=== PATIENT | male | born 1965 | race Caucasian/White ===

== ENCOUNTER 2018-02-08 17:05 | Emergency (ER) | payer OTHER ==
[2018-02-08 17:52] VITALS: BP 122/67; PULSE 81; TEMP 98.3; BMI 27.9
[2018-02-08 18:01] LABS: BASO % 1.1 % (0-2.0); EOS % 2.5 % (0-4.5); HEMATOCRIT 30.8 % (35.4-49); HEMOGLOBIN 10.3 GM/dL (11.7-16.9); LYMPH % 15.5 % (8-40); MCH 30.5 pg (25.7-33.7); MCHC 33.3 g/dl (32.0-35.9); MEAN CELL VOLUME 91.5 fl (80-96); MEAN PLT VOLUME 9.4 fl (7.5-11.1); MONO % 13.5 % (3.8-10.2); NEUT % 67.4 % (42.8-82.8); PLATELET COUNT 197 K/MM3 (134-434); RBC 3.37 M/mm3 (4.00-5.60); RDW 19.7 % (11.9-15.9); WHITE BLOOD COUNT 9.5 K/mm3 (4.0-10.0)
[2018-02-08 18:19] LABS: INR 1.32 (0.82-1.09); PROTHROMBIN TIME (PATIENT) 14.9 SEC (9.7-13.0)
[2018-02-08 18:25] LABS: ALBUMIN 2.9 g/dl (3.4-5.0); ANION GAP 8 (8-16); BILIRUBIN,TOTAL 0.6 mg/dL (0.2-1.0); BLOOD UREA NITROGEN 14 mg/dL (7-18); CALCIUM 8.3 mg/dL (8.5-10.1); CHLORIDE 107 mmol/L (98-107); CO2 27 mmol/L (21-32); CREATININE 0.7 mg/dL (0.7-1.3); GLUCOSE,RANDOM 90 mg/dL (74-106); POTASSIUM 4.2 mmol/L (3.5-5.1); SGOT/AST 67 U/L (15-37); SGPT/ALT 46 U/L (12-78); SODIUM 142 mmol/L (136-145); TOT PROT 7.3 g/dl (6.4-8.2)
[2018-02-08 18:26] LABS: ALK PHOS 264 U/L (45-117)
--- NOTE | 2018-02-08 18:45 | PDOC ---
History of Present Illness - General History Source: Patient Exam Limitations: No Limitations <Shannan Abreu - Last Filed: 02/08/18 19:06> - History of Present Illness Initial Comments: 02/08/18 19:22 "The patient is a 52-year-old female with past medical history of HTN, TBI, COPD , Recent hx of perforated gastric ulcer, alcoholic Cirrhosis w/ ascites, ETOH abuse (since age 13), anxiety, depression, recent dx of pneumonia (December 2017) and hypothyroidism presents to the emergency department via EMS, from [facility] for antibiotic administration. Postoperative emergent laparotomy, patient became hypoxic and was intubated on 01/06/2018. Patient was transferred to [facility] due to persistent drainage from the LOREN drain and for further evaluation by the Liver transplant team. Patient was started on ciprofloxacin and fluconazole, later discharge to rehab. In rehab, patient noticed an increase in yellowing discoloration of the abdomen wound incision site. Patient was seen at the ED on 02/04 for evaluation due to an increase in wound discoloration. Patient was evaluated by surgery, whose plan was to have the wound heal by secondary intention. Patient had a wound culture performed during the ED visit, culture results came back positive for MRSA. Patient was started on Cipro since the hospitalization, and the culture results on the showed it was resistant for Cipro. Patient was sent to ED for possible IV antibiotic administration. Patient reports he changes his own wound dressing without assistance and the discharge has been improving Denies fever, chills, cough or a headache. Denies chest pain or shortness of breath. Denies back pain. Denies any changes in appetite. Denies any urinary issues. Denies diarrhea. Denies recent drainage from the wound or increase in drainage. Allergies: naproxen Social history: Former smoker. Started drinking alcohol at age 13, consumes 10- 12x 24oz of beer daily. Last drank on 12/21/17). Denies the use of recreational drugs. Surgical history: Hernia Repair (umbilical), R. hip and leg and ankle surgery, laparotomy with Yeyo patch repair of perforated ulcer performed by Dr. Ciera Cho at [place] and paracentesis. PCP: None reported. " <Dimas Dailey - Last Filed: 02/08/18 19:22> <Rema Beck - Last Filed: 02/08/18 21:11> - General Chief Complaint: Wound Stated Complaint: WOUND Time Seen by Provider: 02/08/18 17:43 Past History <Shannan Abreu - Last Filed: 02/08/18 19:06> - Past Medical History Anemia: No Asthma: No Cancer: No Cardiac Disorders: No CVA: No COPD: Yes CHF: No Dementia: No Diabetes: No GI Disorders: Yes (Peptic Ulcer) Disorders: No HTN: No Hypercholesterolemia: No Kidney Stones: No Liver Disease: Yes (cirrhosis of liver) Psychiatric Problems: Yes (depression) Seizures: No Thyroid Disease: Yes (hypothyroidism) - Surgical History Abdominal Surgery: Yes (emergency laparotomy with yeyo patch repair 01/06/18) Appendectomy: No Cardiac Surgery: No Cholecystectomy: No Lung Surgery: No Neurologic Surgery: No Orthopedic Surgery: No - Reproductive History Testicular Surgery: No - Suicide/Smoking/Psychosocial Hx Smoking History: Former smoker Have you smoked in the past 12 months: Yes Number of Cigarettes Smoked Daily: 10 If you are a former smoker, when did you quit?: 12/04/2017 Information on smoking cessation initiated: No 'Breaking Loose' booklet given: 02/04/18 Hx Alcohol Use: Yes Drug/Substance Use Hx: No Substance Use Type: Alcohol Hx Substance Use Treatment: Yes (3 previous inpt detox & 4-5 inpt rehab) <Dimas Dailey - Last Filed: 02/08/18 19:22> <Rema Beck - Last Filed: 02/08/18 21:11> - Past Medical History Allergies/Adverse Reactions: Allergies Allergy/AdvReac Type Severity Reaction Status Date / Time naproxen Allergy Severe Difficulty Verified 02/08/18 17:35 Breathing Home Medications: Ambulatory Orders Budesonide/Formeterol Fumarate [SYMBICORT 160/4.5mcg -] 1 inh PO BID 01/25/18 Ciprofloxacin [Cipro (Restricted To Id)] 500 mg PO Q12H 01/25/18 Fluconazole 400 mg PO DAILY 01/25/18 Folic Acid - 1 mg PO DAILY 01/25/18 Furosemide [Lasix -] 20 mg PO DAILY 01/25/18 Lactulose (Oral Use) [Cephulac -] 20 gm PO TID 01/25/18 Levothyroxine [Synthroid -] 150 mcg PO DAILY 01/25/18 Midodrine HCl [Proamatine -] 5 mg PO TID 01/25/18 Sertraline HCl [Zoloft] 100 mg PO DAILY 01/25/18 Spironolactone 50 mg PO DAILY 01/25/18 Review of Systems - Review of Systems Able to Perform ROS?: Yes Comments:: 02/08/18 19:22 CONSTITUTIONAL: No reported: Fever, Chills, Diaphoresis, Generalized Weakness, Malaise, Loss of Appetite HEENT: No reported: Rhinorrhea, Nasal Congestion, Throat Pain, Throat Swelling, Difficulty Swallowing, Mouth Swelling, Ear Pain, Eye Pain, Visual Changes CARDIOVASCULAR: No reported: Chest Pain, Syncope, Palpitations, Irregular Heart Rate, Lightheadedness, Peripheral Edema RESPIRATORY: No reported: Cough, Shortness of Breath, SOB with Exertion, Orthopnea, Wheezing , Stridor, Hemoptysis GASTROINTESTINAL: No drainage from the incision site (+) chronic abdominal distension. No reported: Abdominal pain, Nausea, Vomiting, Diarrhea, Constipation, Melena, Hematochezia GENITOURINARY: No reported: Dysuria, Frequency, Urgency, Hesitancy, Flank Pain, Genital Pain MUSCULOSKELETAL: No reported: Myalgia, Arthralgia, Joint Swelling, Back pain, Neck Pain SKIN: No reported: Rash, Itching, Pallor HEMEATOLOGIC/IMMUNOLOGIC: No reported: Easy Bleeding, Easy Bruising, Lymphadenopathy, Frequent infections ENDOCRINE: No reported: Unexplained Weight Gain, Unexplained Weight Loss, Heat Intolerance , Cold Intolerance NEUROLOGIC: No reported: Headache, Focal Weakness, Paresthesias, Vertigo, Lightheadedness, Unsteady Gait, Seizure, Mental Status Changes, Incontinence PSYCHIATRIC: No reported: Anxiety, Depression <Dimas Dailey - Last Filed: 02/08/18 19:22> *Physical Exam - Vital Signs Last Vital Signs Temp Pulse Resp BP Pulse Ox 98.3 F 81 18 122/67 97 02/08/18 17:05 02/08/18 17:05 02/08/18 17:05 02/08/18 17:05 02/08/18 17:05 <Shannan Abreu - Last Filed: 02/08/18 19:06> - Vital Signs Last Vital Signs Temp Pulse Resp BP Pulse Ox 98.3 F 81 18 122/67 97 02/08/18 17:05 02/08/18 17:05 02/08/18 17:05 02/08/18 17:05 02/08/18 17:05 - Physical Exam Comments: 02/08/18 18:48 GENERAL: The patient is awake, alert, and fully oriented, Nontoxic - in no acute distress. HEAD: Normocephalic, atraumatic. EYES: extraocular movements intact, sclera anicteric, conjunctiva clear. ENT: Normal voice, Moist mucous membranes. NECK: Normal range of motion, supple LUNGS: Breath sounds equal, clear to auscultation bilaterally. No wheezes, no rhonchi, no rales. HEART: Regular rate and rhythm, normal S1 and S2 without murmur, rub or gallop. ABDOMEN: soft, slightly distended, mid abdomen scar with area of dehiscence in the proximal region, staplse in place, mild erythema surrounding wound without induration, warmth, no discharge upon palpation, EXTREMITIES: Normal range of motion, +1 pitting edema b/l in lower extreme NEUROLOGICAL: No facial assymetry, Normal speech, moving all 4 extremities sponatneously and symmetrically PSYCH: Normal mood, normal affect. SKIN: Warm, Dry, normal turgor, <Ashlie,Dimas - Last Filed: 02/08/18 19:22> - Vital Signs Last Vital Signs Temp Pulse Resp BP Pulse Ox 98.3 F 81 18 122/67 97 02/08/18 17:05 02/08/18 17:05 02/08/18 17:05 02/08/18 17:05 02/08/18 17:05 <Rema Beck - Last Filed: 02/08/18 21:11> ED Treatment Course - LABORATORY CBC & Chemistry Diagram: 02/08/18 17:54 02/08/18 17:54 - ADDITIONAL ORDERS Additional order review: Laboratory Results 02/08/18 02/08/18 17:54 17:54 PT with INR 14.90 H INR 1.32 H Sodium 142 Potassium 4.2 Chloride 107 Carbon Dioxide 27 Anion Gap 8 BUN 14 Creatinine 0.7 Creat Clearance w eGFR > 60 Random Glucose 90 Calcium 8.3 L Total Bilirubin 0.6 AST 67 H ALT 46 Alkaline Phosphatase 264 H D Total Protein 7.3 Albumin 2.9 L 02/08/18 17:54 RBC 3.37 L MCV 91.5 MCHC 33.3 RDW 19.7 H MPV 9.4 Neutrophils % 67.4 Lymphocytes % 15.5 Monocytes % 13.5 H Eosinophils % 2.5 Basophils % 1.1 <Shannan Abreu - Last Filed: 02/08/18 19:06> - LABORATORY CBC & Chemistry Diagram: 02/08/18 17:54 02/08/18 17:54 - ADDITIONAL ORDERS Additional order review: Laboratory Results 02/08/18 02/08/18 17:54 17:54 PT with INR 14.90 H INR 1.32 H Sodium 142 Potassium 4.2 Chloride 107 Carbon Dioxide 27 Anion Gap 8 BUN 14 Creatinine 0.7 Creat Clearance w eGFR > 60 Random Glucose 90 Calcium 8.3 L Total Bilirubin 0.6 AST 67 H ALT 46 Alkaline Phosphatase 264 H D Total Protein 7.3 Albumin 2.9 L 02/08/18 17:54 RBC 3.37 L MCV 91.5 MCHC 33.3 RDW 19.7 H MPV 9.4 Neutrophils % 67.4 Lymphocytes % 15.5 Monocytes % 13.5 H Eosinophils % 2.5 Basophils % 1.1 <Dimas Dailey - Last Filed: 02/08/18 19:22> - LABORATORY CBC & Chemistry Diagram: 02/08/18 17:54 02/08/18 17:54 - ADDITIONAL ORDERS Additional order review: Laboratory Results 02/08/18 02/08/18 17:54 17:54 PT with INR 14.90 H INR 1.32 H Sodium 142 Potassium 4.2 Chloride 107 Carbon Dioxide 27 Anion Gap 8 BUN 14 Creatinine 0.7 Creat Clearance w eGFR > 60 Random Glucose 90 Calcium 8.3 L Total Bilirubin 0.6 AST 67 H ALT 46 Alkaline Phosphatase 264 H D Total Protein 7.3 Albumin 2.9 L 02/08/18 17:54 RBC 3.37 L MCV 91.5 MCHC 33.3 RDW 19.7 H MPV 9.4 Neutrophils % 67.4 Lymphocytes % 15.5 Monocytes % 13.5 H Eosinophils % 2.5 Basophils % 1.1 - Medications Given in the ED: ED Medications Discontinued Medications Generic Name Dose Route Start Last Admin Trade Name Freq PRN Reason Stop Dose Admin Vancomycin HCl 1,250 mg/ 250 mls @ 166.667 mls/hr 02/08/18 19:25 02/08/18 20: 12 Dextrose IVPB 02/08/18 20:29 166.667 mls/hr ONCE ONE Administration Protocol Vancomycin HCl 1,250 mg/ 250 mls @ 250 mls/hr 02/08/18 19:24 02/08/18 20:13 Dextrose IVPB 02/08/18 19:59 Not Given ONCE ONE Protocol <Rema Beck - Last Filed: 02/08/18 21:11> Medical Decision Making - Medical Decision Making 02/08/18 18:44 52y M cirrhotic w/ ascites recent laparotomy for perforated ulcer s/p repair, currently in detox, sent to the ED for wound cultures + for MRSA that is resistant to Cipro (that he is currently on) - pt without complaints including fever/chills, n/v, abd pain, nor increased discharge fromhis abdomen. culture sensitivies noted for sensitive to bactrim - will discuss with ID regarding need for IV abx vs PO meds as pt is a cirrotic w ascites will ck cbc, cmp, blood cultures will sign th ept out to dr. beck to fu with results and dispo the patient A portion of this note was documented by scribe services under my direction. I have reviewed the details of the note, within reason, and agree with the documentation with the following case summary and management plan written by me 02/08/18 19:22 labs reviewed no leukocytois noted case dw dr. singer (ID) - states that as the patient is sensitive to bactrim, recomends bactrim BID for 10 days and follow up with PMD or surgery. will give dose of vancomycin 15mg/kg andthen can start bactrim BID case signed out to dr. beck to [facility] regarding plan and can likely be discharged back to [facility] <Dimas Dailey - Last Filed: 02/08/18 19:22> *DC/Admit/Observation/Transfer <Shannan Abreu - Last Filed: 02/08/18 19:06> <Dimas Dailey - Last Filed: 02/08/18 19:22> - Discharge Dispostion Decision to Admit order: No <Rema Beck - Last Filed: 02/08/18 21:11> Diagnosis at time of Disposition: Wound infection - Discharge Dispostion Disposition: HOME Condition at time of disposition: Improved - Patient Instructions Additional Instructions: BACK TO [facility]; bactrim DS take one tablet every 12 hrs. x 7 days
[2018-02-08] MEDS ORDERED: DEXTROSE 5% IVPB ONE (19:00)
[2018-02-08] MEDS ORDERED: VANCOMYCIN IVPB ONE (19:00)
[2018-02-08] MEDS ORDERED: WATER IVPB ONE (19:00)
[2018-02-08] MEDS ORDERED: VANCOMYCIN 1,250 MG in DEXTROSE 5%-WATER - 250 ML IVPB ONE ×2 (19:24→19:25)
== END 2018-02-08 22:47 | disposition home or self-care (01) ==
LOC: JER 17:05
DX: T81.4XXA Infection following a procedure, initial encounter (principal); J44.9 Chronic obstructive pulmonary disease, unspecified; K70.31 Alcoholic cirrhosis of liver with ascites; Z87.820 Personal history of traumatic brain injury; F41.8 Other specified anxiety disorders; Z87.01 Personal history of pneumonia (recurrent); E03.9 Hypothyroidism, unspecified; I10 Essential (primary) hypertension; Z59.0 Homelessness
CPT/HCPCS: 36415; 80053; 85025; 85610; 87040; 99285-25